=== PATIENT | female | born 1980 | race Caucasian/White ===

== ENCOUNTER 2016-03-03 14:04 | Emergency (ER) | payer BC ==
[2016-03-03] MEDS: ONDANSETRON HCL IV 4 MG/2 ML VIAL IVP ONE (16:04)
[2016-03-03] MEDS: HYDROMORPHONE HCL 1 MG/ML CPJ IVP ONE ×2 (16:04→18:15)
[2016-03-03 16:23] LABS: BASO % 1.2 % (0-6); EOS % 4.2 % (0-6); GRAN % 69.1 % (47-80); HEMATOCRIT 36.3 % (35.0-47.0); HEMOGLOBIN 11.9 gm/dl (11.6-16.0); LYMPH % 19.3 % (16-45); MEAN CELL VOLUME 85.8 fl (81-97); MEAN CORPUSCULAR HEMOGLOBIN 28.1 pg (27-33); MEAN CORPUSCULAR HGB CONC 32.8 g/dl (32-36); MEAN PLATELET VOLUME 10.6 fl (7.4-10.4); MONO % 6.2 % (0-9); PLATELET COUNT 291 K/uL (130-400); RED BLOOD COUNT 4.23 M/uL (3.80-5.40); RED CELL DISTRIBUTION WIDTH 12.9 % (11.5-14.5); WHITE BLOOD COUNT W/O DIFF 6.4 K/uL (4.2-12.2)
[2016-03-03 16:35] LABS: ANION GAP 13.6 (7-16); BLOOD UREA NITROGEN 11 mg/dL (7-17); CARBON DIOXIDE 19.4 mmol/L (22-30); CREATININE 0.6 mg/dL (0.52-1.04); EST GLOMERULAR FILTRATION RATE > 60 ml/min; GLUCOSE,RANDOM 78 mg/dL (70-110)
--- NOTE | 2016-03-03 18:17 | Emergency Department Record ---
History of Present Illness - General Chief complaint: Pain Stated complaint: SURGERY SITE PAIN Time Seen by Provider: 03/03/16 15:45 Source: Patient Mode of Arrival: Ambulatory Limitations: No limitations - History of Present Illness Initial comments: pt c/o lump in her neck. she is felicia concerned as her mother had cancer, lymphoma with the same symptoms. then she vomited today and now has significant pain around the umbilicus MD Complaint: Abdominal Pain, Neck Pain Onset/Timin -: Hour(s) Location: Other History of Same: Yes Radiation: Proximal Severity scale (1-10): 4 Quality: Sharp Consistency: Constant Improves with: Immobilization Worsens with: Other Associated Symptoms: Denies other symptoms - Related Data Home Medications Medication Instructions Recorded Confirmed Last Taken Aspirin [Ecotrin] 325 mg PO DAILY 11/04/15 03/03/16 1 Day Ago Ranitidine HCl [Zantac] 150 mg PO BID 11/04/15 03/03/16 1 Day Ago Sumatriptan Succinate [Imitrex] 100 mg PO DAILY tab 11/22/15 03/03/16 1 Day Ago Quetiapine Fumarate [Seroquel] 50 mg PO BID 01/21/16 03/03/16 1 Day Ago Previous Rx's Medication Instructions Recorded Cephalexin [Keflex] 500 mg PO QID #40 cap 03/03/16 Ibuprofen [Motrin 600Mg] 600 mg PO Q6H #20 tablet 03/03/16 Allergies Allergy/AdvReac Type Severity Reaction Status Date / Time metoclopramide HCl Allergy HYPERSENSIT Verified 03/03/16 14:21 [From Reglan] IVITY promethazine HCl Allergy HYPERSENSIT Verified 03/03/16 14:21 [From Phenergan] IVITY Sulfa (Sulfonamide Allergy HIVES Verified 03/03/16 14:21 Antibiotics) Travel Screening - Travel/Exposure Within Last 30 Days Have you traveled within the last 30 days?: No Review of Systems Reviewed: No additional complaints except as noted below Constitutional: Reports: As per HPI. Denies: Chills, Fever, Malaise, Night sweats, Weakness, Weight change Eyes: Reports: As per HPI. Denies: Eye discharge, Eye pain, Photophobia, Vision change ENT: Reports: As per HPI. Denies: Congestion, Dental pain, Ear pain, Epistaxis , Hearing loss, Throat pain Respiratory: Reports: As per HPI. Denies: Cough, Dyspnea, Hemoptysis, Stridor, Wheezes Cardiovascular: Reports: As per HPI. Denies: Arrhythmia, Chest pain, Dyspnea on exertion, Edema, Murmurs, Orthopnea, Palpitations, Paroxysmal nocturnal dyspnea, Rheumatic Fever, Syncope Endocrine: Reports: As per HPI. Denies: Fatigue, Heat or cold intolerance, Polydipsia, Polyuria Gastrointestinal: Reports: As per HPI. Denies: Abdominal pain, Constipation, Diarrhea, Hematemesis, Hematochezia, Melena, Nausea, Vomiting Genitourinary: Reports: As per HPI. Denies: Abnormal menses, Discharge, Dyspareunia, Dysuria, Frequency, Hematuria, Incontinence, Retention, Urgency Musculoskeletal: Reports: As per HPI. Denies: Arthralgia, Back pain, Gout, Joint swelling, Myalgia, Neck pain Skin: Reports: As per HPI. Denies: Bruising, Change in color, Change in hair/ nails, Lesions, Pruritus, Rash Neurological: Reports: As per HPI. Denies: Abnormal gait, Confusion, Headache, Numbness, Paresthesias, Seizure, Tingling, Tremors, Vertigo, Weakness Psychiatric: Reports: As per HPI. Denies: Anxiety, Auditory hallucinations, Depression, Homicidal thoughts, Suicidal thoughts, Visual hallucinations Hematological/Lymphatic: Reports: As per HPI. Denies: Anemia, Blood Clots, Easy bleeding, Easy bruising, Swollen glands Past Medical History - SOCIAL HISTORY Smoking Status: Former smoker Alcohol Use: Heavy Drug Use: None - RESPIRATORY Hx Respiratory Disorders: Yes Hx Asthma: Yes (mild) Hx Bronchitis: Yes - CARDIOVASCULAR Hx Cardio Disorders: Yes Hx Hypotension: Yes - NEURO Hx Neuro Disorders: Yes Hx Headaches: Yes - GI Hx GI Disorders: Yes Hx Reflux: Yes - Hx Genitourinary Disorders: No - ENDOCRINE Hx Endocrine Disorders: No - MUSCULOSKELETAL Hx Musculoskeletal Disorders: Yes Hx Arthritis: Yes (neck) Hx Fibromyalgia: Yes - PSYCH Hx Psych Problems: Yes Hx Anxiety: Yes Hx Depression: Yes - HEMATOLOGY/ONCOLOGY Hx Hematology/Oncology Disorders: No Family Medical History Any Significant Family History?: Yes Hx Cancer: Mother Physical Exam - General General Appearance: Alert, Oriented x3, Cooperative, Mild distress - Head Head exam: Normal inspection - Eye Eye exam: Normal appearance, PERRL, EOMI Pupils: Normal accommodation - ENT ENT exam: Normal exam, Mucous membranes moist, Normal external ear exam, Normal orophraynx Ear exam: Normal external inspection. negative: External canal tenderness Nasal Exam: Normal inspection. negative: Discharge, Sinus tenderness Mouth exam: Normal external inspection, Tongue normal Teeth exam: Normal inspection. negative: Dental caries Throat exam: Normal inspection. negative: Tonsillar erythema, Tonsillar exudate - Neck Neck exam: Normal inspection, Full ROM, Lymphadenopathy (onl side of neck w erythema and tenderness). negative: Tenderness - Respiratory Respiratory exam: Normal lung sounds bilaterally. negative: Respiratory distress - Cardiovascular Cardiovascular Exam: Regular rate, Normal rhythm, Normal heart sounds - GI/Abdominal GI/Abdominal exam: Soft, Normal bowel sounds, Tenderness (periumbilical) - Rectal Rectal exam: Deferred - exam: Deferred - Extremities Extremities exam: Normal inspection, Full ROM, Normal capillary refill. negative: Tenderness - Back Back exam: Reports: Normal inspection, Full ROM. Denies: Muscle spasm, Rash noted, Tenderness - Neurological Neurological exam: Alert, CN II-XII intact, Normal gait, Oriented X3 - Psychiatric Psychiatric exam: Normal affect, Normal mood - Skin Skin exam: Dry, Intact, Normal color, Warm Course Vital Signs 03/03/16 03/03/16 14:13 16:47 Temperature 98.1 F Pulse Rate 92 H Pulse Rate [ 71 Pulse Ox Probe] Respiratory 16 18 Rate Blood Pressure 124/87 Blood Pressure 117/79 [Right Arm] Pulse Ox 97 98 Medical Decision Making - Management Options MDM Management: Additional Work-up Planned (e.g. ADM/Transfer/OP Study) - Data Complexity MDM Data: Labs Ordered and/or Reviewed, X-Ray Ordered and/or Reviewed - Lab Data Result diagrams: 03/03/16 16:04 03/03/16 16:04 Lab Results 03/03/16 03/03/16 Range/Units 16:04 16:04 WBC 6.4 (4.2-12.2) K/uL RBC 4.23 (3.80-5.40) M/uL Hgb 11.9 (11.6-16.0) gm/dl Hct 36.3 (35.0-47.0) % MCV 85.8 (81-97) fl MCH 28.1 (27-33) pg MCHC 32.8 (32-36) g/dl RDW 12.9 (11.5-14.5) % Plt Count 291 (130-400) K/uL MPV 10.6 H (7.4-10.4) fl Gran % 69.1 (47-80) % Lymphocytes % 19.3 (16-45) % Monocytes % 6.2 (0-9) % Eosinophils % 4.2 (0-6) % Basophils % 1.2 (0-6) % Sodium 138 (136-145) mmol/L Potassium 4.0 (3.5-5.1) mmol/L Chloride 105 (98-107) mmol/L Carbon Dioxide 19.4 L (22-30) mmol/L Anion Gap 13.6 (7-16) BUN 11 (7-17) mg/dL Creatinine 0.6 (0.52-1.04) mg/dL Estimated GFR > 60 ml/min Random Glucose 78 (70-110) mg/dL Calcium 8.7 (8.5-10.1) mg/dL - Radiology Data Radiology results: Report reviewed, Image reviewed Disposition Disposition: Discharge Clinical Impression: Enlarged lymph node in neck Abdominal muscle strain Qualifiers: Encounter type: initial encounter Qualified Code(s): S39.011A - Strain of muscle, fascia and tendon of abdomen, initial encounter Disposition: Home, Self-Care Condition: (1) Good Instructions: Muscle Strain (ED), Lymphadenopathy (ED) Additional Instructions: follow up with family doctor. return sooner if worse. if lymph node does not get better have it rechecked by family doctor for further evaluation Prescriptions: Cephalexin [Keflex] 500 mg PO QID #40 cap Ibuprofen [Motrin 600Mg] 600 mg PO Q6H #20 tablet Forms: Patient Portal Access
--- NOTE | 2016-03-06 10:41 | CT SCAN REPORT ---
EXAM: CT SCAN OF THE ABDOMEN AND PELVIS HISTORY: ACUTE ABDOMINAL PAIN. TECHNIQUE: Serial axial CT scan of the abdomen and pelvis was performed at 3.75 mm intervals from the dome of the diaphragm down to the pubic symphysis following the intravenous and oral administration of contrast. No comparison CT's are available. FINDINGS: The lung windows of the lung bases demonstrate no CT evidence of a focal infiltrate or pleural effusion. The visualized heart size and contour is within normal limits. The liver demonstrates diffuse mild fatty infiltration. No focal hepatic lesions are identified. The size and contour of the liver is within normal limits. The visualized spleen, pancreas, bilateral adrenal glands, and gallbladder are unremarkable. The bilateral kidneys demonstrate no CT evidence of hydronephrosis or hydroureter. No obvious renal or ureteral calculi are noted. The contour, caliber, and flow within the abdominal aorta is within normal limits. There is no CT evidence of retroperitoneal, pelvic or inguinal lymphadenopathy. The visualized bowel gas pattern is nonspecific and nonobstructive. The appendix is clearly visualized and there is no CT evidence of appendicitis. There is no CT evidence of free intraperitoneal fluid or free intraperitoneal air. The urinary bladder is unremarkable The uterus is retroverted. Occasional follicles are identified within the bilateral ovaries. Bone windows of the visualized abdomen and pelvis demonstrate no CT evidence of a fracture or dislocation of the visualized osseous structures. IMPRESSION: 1. NO CT EVIDENCE OF AN ACUTE INTRAABDOMINAL PROCESS. 2. DIFFUSE HEPATIC STEATOSIS. JOB NUMBER: [id number] [facility]
--- NOTE | 2016-03-06 10:47 | CT SCAN REPORT ---
EXAM: CT SCAN OF THE NECK HISTORY: PATIENT HAS SWOLLEN LYMPH GLANDS IN THE LEFT SIDE OF THE NECK. TECHNIQUE: Serial axial CT scan of the neck was performed at 2.5 mm intervals from the base of the skull to the thoracic inlet following the intravenous administration of 150 ml of Omnipaque 350. Sagittal and coronal reconstructions are provided. No comparison studies are available. FINDINGS: The vertebral body height, contour, and AP alignment of the cervical spine is within normal limits. There is no CT evidence of a fracture or dislocation of the cervical spine. Anterior plate and screw fixation of the C5 and C6 vertebral bodies are identified with interbody graft. No obvious hardware failure is noted. The prevertebral soft tissue and parapharyngeal fat are unremarkable. The visualized submandibular, parotid, and thyroid gland are unremarkable. There is no CT evidence of cervical lymphadenopathy. The neck vessels are unremarkable. The lung windows of the lung apices are clear. The airways are patent. IMPRESSION: NO CT EVIDENCE OF AN ACUTE PROCESS INVOLVING THE NECK. JOB NUMBER: [id number] [facility]
== END 2016-03-03 19:28 | disposition home or self-care (01) ==
LOC: ER 14:04
DX: S39.011A Strain of muscle, fascia and tendon of abdomen, initial encounter (principal); R59.0 Localized enlarged lymph nodes; M54.2 Cervicalgia; R11.11 Vomiting without nausea; X58.XXXA Exposure to other specified factors, initial encounter
CPT/HCPCS: 99284 ×2; 96376; 96374; 96375; 85025; 80048; 70491; 74177; Q9967; J2405; J1170

== ENCOUNTER 2016-12-27 19:20 | Emergency (ER) | payer MEDICAID ==
[2016-12-27] MEDS ORDERED: ONDANSETRON HCL IV 4 MG/2 ML VIAL IVP ONE (19:47)
--- NOTE | 2016-12-27 19:51 | Emergency Department Record ---
History of Present Illness - General Chief complaint: Fatigue and Weakness Stated complaint: BLACK STOOL,VOMITTING Time Seen by Provider: 12/27/16 19:45 Source: Patient Mode of Arrival: Ambulatory Limitations: No limitations - History of Present Illness Initial comments: 36 yo female presents to ED for evaluation of vomiting blood today, black stools , and weakness/fatigue. Patient reports a history of "stomach ulcers", denies previous endoscopy. Patient denies anticoagulation use or liver disease history. Patient denies previous abdominal surgery. MD Complaint: Generalized weakness Onset/Timin -: Days(s) Location: Generalized Severity: Moderate Consistency: Constant Improves with: None Worsens with: None Associated Symptoms: Nausea/vomiting - Hudson Coma Scale Eye Response: (4) Open spontaneously Motor Response: (6) Obeys commands Verbal Response: (5) Oriented Hudson Total: 15 - Related Data Previous Rx's Medication Instructions Recorded Ondansetron [Zofran Odt] 4 mg PO Q6H PRN #20 tab.rapdis 12/27/16 Allergies Allergy/AdvReac Type Severity Reaction Status Date / Time metoclopramide HCl Allergy HYPERSENSIT Verified 12/27/16 20:09 [From Reglan] IVITY promethazine HCl Allergy HYPERSENSIT Verified 12/27/16 20:09 [From Phenergan] IVITY Sulfa (Sulfonamide Allergy HIVES Verified 12/27/16 20:09 Antibiotics) Review of Systems Constitutional: Denies: Chills, Fever, Malaise, Night sweats Eyes: Denies: Eye discharge, Eye pain ENT: Denies: Congestion, Ear pain, Epistaxis Respiratory: Denies: Cough, Dyspnea Cardiovascular: Denies: Dyspnea on exertion, Edema Endocrine: Denies: Fatigue, Heat or cold intolerance Gastrointestinal: Reports: Abdominal pain, Melena, Nausea, Vomiting Genitourinary: Denies: Incontinence, Retention Musculoskeletal: Denies: Arthralgia, Back pain, Gout, Joint swelling Skin: Denies: Bruising, Change in color Neurological: Denies: Abnormal gait, Confusion, Headache Psychiatric: Denies: Anxiety Hematological/Lymphatic: Denies: Anemia, Blood Clots Past Medical History - SOCIAL HISTORY Smoking Status: Former smoker Drug Use: None - RESPIRATORY Hx Respiratory Disorders: Yes Hx Asthma: Yes (mild) Hx Bronchitis: Yes - CARDIOVASCULAR Hx Cardio Disorders: Yes Hx Hypotension: Yes - NEURO Hx Neuro Disorders: Yes Hx Headaches: Yes - GI Hx GI Disorders: Yes Hx Reflux: Yes - Hx Genitourinary Disorders: No - ENDOCRINE Hx Endocrine Disorders: No - MUSCULOSKELETAL Hx Musculoskeletal Disorders: Yes Hx Arthritis: Yes (neck) Hx Fibromyalgia: Yes - PSYCH Hx Psych Problems: Yes Hx Anxiety: Yes Hx Depression: Yes - HEMATOLOGY/ONCOLOGY Hx Hematology/Oncology Disorders: No Family Medical History Hx Cancer: Mother Physical Exam - General General Appearance: Alert, Oriented x3, Cooperative, Moderate distress Limitations: No limitations - Head Head exam: Atraumatic, Normocephalic, Normal inspection Head exam detail: negative: Abrasion, Contusion, Clifford's sign, General tenderness, Hematoma, Laceration - Eye Eye exam: Normal appearance. negative: Conjunctival injection, Periorbital swelling, Periorbital tenderness, Scleral icterus - ENT Ear exam: negative: Auricular hematoma, Auricular trauma Nasal Exam: negative: Active bleeding, Discharge, Dried blood, Foreign body Mouth exam: negative: Drooling, Laceration, Muffled voice, Tongue elevation - Neck Neck exam: Normal inspection. negative: Meningismus, Tenderness - Respiratory Respiratory exam: Normal lung sounds bilaterally. negative: Rhonchi, Stridor, Wheezes - Cardiovascular Cardiovascular Exam: Normal rhythm, Normal heart sounds, Tachycardia - GI/Abdominal GI/Abdominal exam: Soft, Tenderness (Generalized TTP, no rebound or guarding present). negative: Rebound, Rigid - Rectal Rectal exam: Deferred - exam: Deferred - Extremities Extremities exam: Normal inspection. negative: Calf tenderness, Pedal edema, Tenderness - Back Back exam: Denies: CVA tenderness (R), CVA tenderness (L) - Neurological Neurological exam: Alert, Normal gait, Oriented X3 - Psychiatric Psychiatric exam: Normal affect, Normal mood - Skin Skin exam: Normal color. negative: Abrasion Type of lesion: negative: abrasion Course - Reevaluation(s) Reevaluation #1: 12/27/16 20:31 EKG: NSR 71 Normal axis, normal intervals No acute ST-T wave changes Reevaluation #2: 12/27/16 20:44 Labs reviewed and are grossly unremarkable for an acute process. CT results are pending. Reevaluation #3: 12/27/16 21:09 Labs reviewed and are grossly unremarkable for an acute process. CT Abdomen and Pelvis: No acute process Patient was updated on all results, reports that she is feeling much better. Patient has not had any episodes of vomiting or melanotic stool while in the ED. Discussed transfer for possible endoscopy tomorrow as an inpatient, however patient reports that she wants to go home at this time. Patient is currently taking Carafate and Omeprazole for her symptoms, will discharge home on Zofran for nausea/vomiting symptoms and instructions for close follow-up. Medical Decision Making - Lab Data Result diagrams: 12/27/16 20:03 12/27/16 20:03 Disposition Disposition: Discharge Clinical Impression: Hematochezia Disposition: Home, Self-Care Condition: (2) Stable Instructions: Acute Nausea and Vomiting (ED) Additional Instructions: Return to ED if your symptoms worsen or if you have any concerns. Zofran in addition to Omeprazole and Carafate as directed. Follow-up with your family doctor in 1-3 days as directed. Prescriptions: Ondansetron [Zofran Odt] 4 mg PO Q6H PRN #20 tab.rapdis PRN Reason: Nausea/Vomiting Referrals: LAYNE BARCENAS [DOCTOR OF OSTEOPATH] - [facility] [Provider Group] Forms: Patient Portal Access Time of Disposition: 21:14 Quality - Quality Measures Quality Measures: N/A - Blood Pressure Screening Does Patient Have Any of the Following: No Blood Pressure Classification: Hypertensive Reading Systolic Measurement: 122 Diastolic Measurement: 94 Screening for High Blood Pressure: < First Hypertensive BP, F/U Documented > [ G8950] First Hypertensive Follow-up Interventions: Referral to alternative/primary care provider.
[2016-12-27] MEDS ORDERED: 0.9 % SODIUM CHLORIDE 1000ML 1,000 ML IV SCH (20:00)
[2016-12-27 20:11] LABS: BASO % 1.1 % (0-6); EOS % 5.6 % (0-6); GRAN % 59.6 % (47-80); HEMATOCRIT 39.3 % (35.0-47.0); HEMOGLOBIN 13.7 gm/dl (11.6-16.0); MEAN CELL VOLUME 87.3 fl (81-97); MEAN CORPUSCULAR HEMOGLOBIN 30.4 pg (27-33); MEAN CORPUSCULAR HGB CONC 34.9 g/dl (32-36); MONO % 7.7 % (0-9); PLATELET COUNT 359 K/uL (130-400); RED CELL DISTRIBUTION WIDTH 14.4 % (11.5-14.5); WHITE BLOOD COUNT W/O DIFF 7.4 K/uL (4.2-12.2)
[2016-12-27 20:22] LABS: BLOOD UREA NITROGEN 13 mg/dL (6-20); CREATININE 0.7 mg/dL (0.5-0.9); EST GLOMERULAR FILTRATION RATE > 60 mL/min; GLUCOSE,RANDOM 92 mg/dL (74-109); INR 1.06; PROTHROMBIN TIME (PATIENT) 11.5 SECONDS (9.5-12.1); TOTAL PROTEIN 7.4 g/dL (6.6-8.7)
[2016-12-27 20:25] LABS: ALB/GLOB RATIO 1.3 (1.1-1.8); ALBUMIN 4.2 g/dL (4.0-5.0); ALKALINE PHOSPHATASE 70 U/L (35-104); ALT/SGPT 14 U/L (<33); AST/SGOT 27 U/L (10.0-35.0)
[2016-12-27] MEDS ORDERED: MAGNESIUM HYDROXIDE/AL HYDROX 30 ML, LIDOCAINE VISC 2% 200 MG PO ONE ×2 (21:02)
--- NOTE | 2016-12-29 08:07 | CT SCAN REPORT ---
DATE: 12/27/2016 at 2036 hours. EXAM: CT SCAN OF THE ABDOMEN AND PELVIS WITH CONTRAST. HISTORY: Upper abdominal pain and heartburn. Ulcers. Evaluate for perforated ulcer. TECHNIQUE: Standard CT imaging of the abdomen and pelvis was performed with intravenous contrast. A total of 100 mL of Omnipaque 300 was administered. COMPARISON: 03/13/2016. FINDINGS: The lung bases are clear. The liver parenchyma appears normal. The gallbladder, biliary tree, pancreas, spleen, adrenal glands, kidneys, and ureters are normal. The stomach and epigastrium are unremarkable. There are no focal inflammatory changes. There is no evidence for perforated ulcer. The aorta is normal in caliber. There is no retroperitoneal lymphadenopathy. The large and small bowel loops, including the appendix, are normal. There is no pneumoperitoneum or ascites. A 2.3 x 1.9 cm cyst is present within the left ovary. A 1.4 cm follicle is present within the right ovary. The uterus is unremarkable. The urinary bladder is normal. There are no acute osseus abnormalities. IMPRESSION: 1. NO ACUTE INTRA-ABDOMINAL PATHOLOGY. 2. A 2.3 X 1.9 CM LEFT OVARIAN CYST. JOB NUMBER: [id number] [facility]
== END 2016-12-27 21:44 | disposition home or self-care (01) ==
LOC: ER 19:20
DX: K92.1 Melena (principal); R53.1 Weakness; R11.2 Nausea with vomiting, unspecified
CPT/HCPCS: 99284 ×2; 96374; 85025; 85610; 80053; 74177; 93005; 93010; Q9967; J2405; J7030

== ENCOUNTER 2017-01-08 05:33 | Emergency (ER) | payer MEDICAID ==
[2017-01-08] MEDS ORDERED: KETOROLAC 30 MG/ML VIAL IVP ONE (05:47)
[2017-01-08] MEDS ORDERED: MAGNESIUM SULFATE 16 MEQ in 0.9 % SODIUM CHLORIDE 100ML 100 ML IV ONE (05:47)
[2017-01-08] MEDS ORDERED: ONDANSETRON HCL IV 4 MG/2 ML VIAL IVP ONE ×2 (05:48→06:46)
--- NOTE | 2017-01-08 05:53 | Emergency Department Record ---
History of Present Illness - General Chief Complaint: Headache Migraine Stated Complaint: HEADACHE/VOMITING Time Seen by Provider: 01/08/17 05:47 Source: Patient Mode of Arrival: Ambulatory Limitations: No limitations - History of Present Illness Initial Comments: 36 yo female presents to ED for evaluation of a "nigraine" headache that began yesterday, associated with nausea and vomiting. Patient reports taking Imitrex previously which has not significantly improved her symptoms. Patient denies fevers, chills, or neck stiffness symptoms, and the patient denies change in vision. MD Complaint: Headache Onset/Timin -: Days(s) Onset Description: Gradual Location: Diffuse, Neck, Retro-orbital Severity scale (1-10): 10 Quality: Full Consistency: Constant Improves With: Nothing Worsens With: Light, Movement of head/neck Associated Symptoms: Vomiting Treatments Prior to Arrival: Antiemetic, Migraine medication - Related Data Previous Rx's Medication Instructions Recorded Ondansetron [Zofran Odt] 4 mg PO Q6H PRN #20 tab.rapdis 12/27/16 Allergies Allergy/AdvReac Type Severity Reaction Status Date / Time metoclopramide HCl Allergy HYPERSENSIT Verified 12/27/16 20:09 [From Reglan] IVITY promethazine HCl Allergy HYPERSENSIT Verified 12/27/16 20:09 [From Phenergan] IVITY Sulfa (Sulfonamide Allergy HIVES Verified 12/27/16 20:09 Antibiotics) Travel Screening - Travel/Exposure Within Last 30 Days Have you traveled within the last 30 days?: No - Travel Symptoms Symptom Screening: None Review of Systems Constitutional: Denies: Chills, Fever, Malaise, Night sweats Eyes: Denies: Eye discharge, Eye pain ENT: Denies: Congestion, Ear pain, Epistaxis Respiratory: Denies: Cough, Dyspnea Cardiovascular: Denies: Chest pain, Dyspnea on exertion Endocrine: Denies: Fatigue, Heat or cold intolerance Gastrointestinal: Reports: Nausea, Vomiting. Denies: Abdominal pain Genitourinary: Denies: Incontinence, Retention Musculoskeletal: Denies: Arthralgia, Back pain, Gout, Joint swelling Skin: Denies: Bruising, Change in color Neurological: Reports: Headache. Denies: Seizure Psychiatric: Denies: Anxiety Hematological/Lymphatic: Denies: Anemia, Blood Clots Past Medical History - SOCIAL HISTORY Smoking Status: Former smoker - RESPIRATORY Hx Respiratory Disorders: Yes Hx Asthma: Yes (mild) Hx Bronchitis: Yes - CARDIOVASCULAR Hx Cardio Disorders: Yes Hx Hypotension: Yes - NEURO Hx Neuro Disorders: Yes Hx Headaches: Yes - GI Hx GI Disorders: Yes Hx Reflux: Yes - Hx Genitourinary Disorders: No - ENDOCRINE Hx Endocrine Disorders: No Hx Diabetes: No Hx Thyroid Disease: No - MUSCULOSKELETAL Hx Musculoskeletal Disorders: Yes Hx Arthritis: Yes (neck) Hx Fibromyalgia: Yes - PSYCH Hx Psych Problems: Yes Hx Anxiety: Yes Hx Depression: Yes - HEMATOLOGY/ONCOLOGY Hx Hematology/Oncology Disorders: No Family Medical History Any Significant Family History?: Yes Hx Cancer: Mother Physical Exam - General General Appearance: Alert, Oriented x3, Cooperative, Moderate distress Limitations: No limitations - Head Head exam: Atraumatic, Normocephalic, Normal inspection Head exam detail: negative: Abrasion, Contusion, Clifford's sign, General tenderness, Hematoma, Laceration - Eye Eye exam: Normal appearance, PERRL. negative: Conjunctival injection, Periorbital swelling, Periorbital tenderness, Scleral icterus - ENT Ear exam: negative: Auricular hematoma, Auricular trauma Nasal Exam: negative: Active bleeding, Discharge, Dried blood, Foreign body Mouth exam: negative: Drooling, Laceration, Muffled voice, Tongue elevation - Neck Neck exam: Normal inspection. negative: Meningismus, Tenderness - Respiratory Respiratory exam: Normal lung sounds bilaterally. negative: Rales, Respiratory distress, Rhonchi, Stridor - Cardiovascular Cardiovascular Exam: Regular rate, Normal rhythm, Normal heart sounds - GI/Abdominal GI/Abdominal exam: Soft. negative: Rebound, Rigid, Tenderness - Rectal Rectal exam: Deferred - exam: Deferred - Extremities Extremities exam: Normal inspection. negative: Calf tenderness, Pedal edema, Tenderness - Back Back exam: Denies: CVA tenderness (R), CVA tenderness (L) - Neurological Neurological exam: Alert, Normal gait, Oriented X3 - Psychiatric Psychiatric exam: Normal affect, Normal mood - Skin Skin exam: Normal color. negative: Abrasion Type of lesion: negative: abrasion Course Vital Signs 01/08/17 05:37 Pulse Rate 80 Respiratory 24 Rate Blood Pressure 121/67 Pulse Ox 100 - Reevaluation(s) Reevaluation #1: 01/08/17 06:46 Patient was reassessed and reports that she is feeling much better, reports that her headache symptoms are down to 3/10. Patient appears stable for discharge at this time. Disposition Disposition: Discharge Clinical Impression: Headache Qualifiers: Headache type: unspecified Headache chronicity pattern: acute headache Intractability: not intractable Qualified Code(s): R51 - Headache Disposition: Home, Self-Care Condition: (2) Stable Instructions: Acute Headache (ED) Additional Instructions: Return to ED if your symptoms worsen or if you have any concerns. Follow-up with your family doctor in 3-5 days as directed. Forms: Patient Portal Access Time of Disposition: 06:44 Quality - Quality Measures Quality Measures: N/A - Blood Pressure Screening Does Patient Have Any of the Following: No Blood Pressure Classification: Pre-Hypertensive BP Reading Systolic Measurement: 121 Diastolic Measurement: 67 Screening for High Blood Pressure: < Pre-Hypertensive BP, F/U Documented > [ G8950] Pre-Hypertensive Follow-up Interventions: Referral to alternative/primary care provider.
[2017-01-08] MEDS ORDERED: 0.9 % SODIUM CHLORIDE 1000ML 1,000 ML IV SCH (06:00)
== END 2017-01-08 06:59 | disposition home or self-care (01) ==
LOC: ER 05:33
DX: R51 Headache (principal); R11.2 Nausea with vomiting, unspecified
CPT/HCPCS: 99284 ×2; 96376; 96365; 96375; J1885; J2405; J7030

== ENCOUNTER 2017-08-03 19:35 | Emergency (ER) | payer MEDICAID ==
[2017-08-03] MEDS ORDERED: ONDANSETRON HCL IV 4 MG/2 ML VIAL IVP ONE (20:19)
--- NOTE | 2017-08-03 20:23 | Emergency Department Record ---
History of Present Illness - General Chief Complaint: General Stated Complaint: FATIGUE,TIRED ALL THE TIME Time Seen by Provider: 08/03/17 20:08 Source: Patient Mode of Arrival: Wheelchair Limitations: No limitations - History of Present Illness Initial comments: 37 yo female presents to ED for evaluation of "the moist tired I've ever felt in my life". Patient denies fevers, chills, or recent illness. Patient is concerned about "possible mosquito or tick bite that is making me tired". Patient does report "drinking some rum this afternoon because I was anxious about mosquitos". Patient denies stiff neck or headache symptoms. MD Complaint: fatigue Onset/Timin -: Hour(s) Consistency: Constant Improves with: None Worsens with: None Associated Symptoms: Denies other symptoms - [place] Coma Scale Eye Response: (4) Open spontaneously Motor Response: (6) Obeys commands Verbal Response: (5) Oriented Desire Total: 15 - Related Data Previous Rx's Medication Instructions Recorded Ondansetron [Zofran Odt] 4 mg PO Q6H PRN #20 tab.rapdis 12/27/16 Allergies Allergy/AdvReac Type Severity Reaction Status Date / Time metoclopramide HCl Allergy HYPERSENSIT Verified 12/27/16 20:09 [From Reglan] IVITY promethazine HCl Allergy HYPERSENSIT Verified 12/27/16 20:09 [From Phenergan] IVITY Sulfa (Sulfonamide Allergy HIVES Verified 12/27/16 20:09 Antibiotics) Travel Screening - Travel/Exposure Within Last 30 Days Have you traveled within the last 30 days?: No - Travel Symptoms Symptom Screening: None Review of Systems Constitutional: Denies: Chills, Fever, Malaise, Night sweats Eyes: Denies: Eye discharge, Eye pain ENT: Denies: Congestion, Ear pain, Epistaxis Respiratory: Denies: Cough, Dyspnea Cardiovascular: Denies: Chest pain, Dyspnea on exertion Endocrine: Reports: Fatigue. Denies: Heat or cold intolerance Gastrointestinal: Reports: Nausea. Denies: Abdominal pain, Vomiting Genitourinary: Denies: Incontinence, Retention Musculoskeletal: Denies: Arthralgia, Back pain, Gout, Joint swelling Skin: Denies: Bruising, Change in color Neurological: Denies: Abnormal gait, Confusion, Seizure Psychiatric: Reports: Anxiety Hematological/Lymphatic: Denies: Anemia, Blood Clots Past Medical History - SOCIAL HISTORY Smoking Status: Former smoker Alcohol Use: Occasional Drug Use: None - RESPIRATORY Hx Respiratory Disorders: Yes Hx Asthma: Yes (mild) Hx Bronchitis: Yes - CARDIOVASCULAR Hx Cardio Disorders: Yes Hx Hypotension: Yes - NEURO Hx Neuro Disorders: Yes Hx Headaches: Yes - GI Hx GI Disorders: Yes Hx Reflux: Yes - Hx Genitourinary Disorders: No - ENDOCRINE Hx Endocrine Disorders: No Hx Diabetes: No Hx Thyroid Disease: No - MUSCULOSKELETAL Hx Musculoskeletal Disorders: Yes Hx Arthritis: Yes (neck) Hx Fibromyalgia: Yes - PSYCH Hx Psych Problems: Yes Hx Anxiety: Yes Hx Depression: Yes - HEMATOLOGY/ONCOLOGY Hx Hematology/Oncology Disorders: No Family Medical History Any Significant Family History?: Yes Hx Cancer: Mother Physical Exam - General General Appearance: Alert, Oriented x3, Cooperative, Other (Patient has mildldy slurred speech on examination, swaying while sitting upright, pupils are dilated but react to light normally. Paitent smells or alcohol as well.) Limitations: Other (intoxicated) - Head Head exam: Atraumatic, Normocephalic, Normal inspection Head exam detail: negative: Abrasion, Contusion, Clifford's sign, General tenderness, Hematoma, Laceration - Eye Eye exam: Normal appearance, PERRL. negative: Conjunctival injection, Periorbital swelling, Periorbital tenderness, Scleral icterus - ENT Ear exam: negative: Auricular hematoma, Auricular trauma Nasal Exam: negative: Active bleeding, Discharge, Dried blood, Foreign body Mouth exam: negative: Drooling, Laceration, Muffled voice, Tongue elevation - Neck Neck exam: Normal inspection. negative: Meningismus, Tenderness - Respiratory Respiratory exam: Normal lung sounds bilaterally. negative: Rales, Respiratory distress, Rhonchi, Stridor - Cardiovascular Cardiovascular Exam: Regular rate, Normal rhythm, Normal heart sounds - GI/Abdominal GI/Abdominal exam: Soft. negative: Rebound, Rigid, Tenderness - Rectal Rectal exam: Deferred - exam: Deferred - Extremities Extremities exam: Normal inspection. negative: Calf tenderness, Pedal edema, Tenderness - Back Back exam: Reports: Normal inspection. Denies: CVA tenderness (R), CVA tenderness (L) - Neurological Neurological exam: Altered - Skin Skin exam: Normal color. negative: Abrasion Type of lesion: negative: abrasion Course Vital Signs 08/03/17 19:49 Temperature 99.2 F Pulse Rate [ 102 H Pulse Ox Probe] Respiratory 18 Rate Blood Pressure 130/99 [Left Arm] Pulse Ox 96 - Reevaluation(s) Reevaluation #1: 08/03/17 21:04 Labs reviewed, alcohol is 0.284, labs are otherwise grossly unremarkable for an acute process. Patient was updated on all results thus far, symptoms appear consistent with alcohol intoxication. Patient appears stable for discharge with sober ride at this time. Medical Decision Making - Lab Data Result diagrams: 08/03/17 20:30 08/03/17 20:30 Disposition Disposition: Discharge Clinical Impression: Alcohol intoxication Qualifiers: Complication of substance-induced condition: uncomplicated Qualified Code(s): F10.920 - Alcohol use, unspecified with intoxication, uncomplicated Disposition: Home, Self-Care Condition: (2) Stable Instructions: Alcohol Intoxication (ED) Additional Instructions: Return to ED if your symptoms worsen or if you have any concerns. Alcohol in moderation. Follow-up with your family doctor in 3-5 days as directed. Forms: Patient Portal Access Time of Disposition: 21:09 Quality - Quality Measures Quality Measures: N/A - Blood Pressure Screening Does Patient Have Any of the Following: No Blood Pressure Classification: Hypertensive Reading Systolic Measurement: 130 Diastolic Measurement: 99 Screening for High Blood Pressure: < First Hypertensive BP, F/U Documented > [ G8950] First Hypertensive Follow-up Interventions: Referral to alternative/primary care provider.
[2017-08-03] MEDS ORDERED: 0.9 % SODIUM CHLORIDE 1000ML 1,000 ML IV SCH (20:30)
[2017-08-03 20:38] LABS: BASO % 1.2 % (0-6); EOS % 5.3 % (0-6); GRAN % 58.9 % (47-80); HEMATOCRIT 38.3 % (35.0-47.0); LYMPH % 29.1 % (16-45); MEAN CELL VOLUME 80.6 fl (81-97); MEAN CORPUSCULAR HEMOGLOBIN 25.3 pg (27-33); MEAN CORPUSCULAR HGB CONC 31.3 g/dl (32-36); MEAN PLATELET VOLUME 9.7 fl (7.4-10.4); MONO % 5.5 % (0-9); PLATELET COUNT 440 K/uL (130-400); RED BLOOD COUNT 4.75 M/uL (3.80-5.40); RED CELL DISTRIBUTION WIDTH 16.6 % (11.5-14.5); URINE APPEARANCE CLEAR; URINE BILIRUBIN NEGATIVE (NEGATIVE); URINE BLOOD NEGATIVE (NEGATIVE); URINE COLOR YELLOW; URINE GLUCOSE (UA) NEGATIVE (NEGATIVE); URINE KETONE NEGATIVE (NEGATIVE); URINE LEUKOCYTE ESTERASE NEGATIVE (NEGATIVE); URINE NITRITE NEGATIVE (NEGATIVE); URINE PROTEIN NEGATIVE (NEGATIVE); URINE UROBILINOGEN 0.2 E.U./dL (0.20 - 1.00); WHITE BLOOD COUNT W/O DIFF 6.6 K/uL (4.2-12.2)
[2017-08-03 20:42] LABS: AMPHETAMINE SCREEN URINE NOT DETECTED; BARBITURATE SCREEN URINE NOT DETECTED; BENZODIAZEPINE SCREEN URINE NOT DETECTED; COCAINE SCREEN URINE NOT DETECTED; METHADONE SCREEN URINE NOT DETECTED; METHAMPHETAMINE SCREEN NOT DETECTED; OPIATE SCREEN URINE NOT DETECTED; OXYCODONE SCREEN URINE NOT DETECTED; PHENCYCLIDINE SCREEN URINE NOT DETECTED; PROPOXYPHENE SCREEN URINE NOT DETECTED; THC SCREEN URINE NOT DETECTED; TRICYCLIC ANTIDEPRESSANT SCRN NOT DETECTED
[2017-08-03 20:51] LABS: BILIRUBIN,TOTAL < 0.20 mg/dL (0.2-1.0); BLOOD UREA NITROGEN 14 mg/dL (6-20); CREATININE 0.5 mg/dL (0.5-0.9); EST GLOMERULAR FILTRATION RATE > 60 mL/min; TOTAL PROTEIN 7.1 g/dL (6.6-8.7)
[2017-08-03 20:52] LABS: ALCOHOL 0.284 g/dL (0-0.010)
[2017-08-03 20:53] LABS: GLUCOSE,RANDOM 107 mg/dL (74-109)
[2017-08-03 20:56] LABS: ALB/GLOB RATIO 1.3 (1.1-1.8); ALKALINE PHOSPHATASE 74 U/L (35-104); ALT/SGPT 20 U/L (<33); AST/SGOT 34 U/L (10.0-35.0)
== END 2017-08-03 21:29 | disposition home or self-care (01) ==
LOC: ER 19:35
DX: F10.920 Alcohol use, unspecified with intoxication, uncomplicated (principal); R11.0 Nausea; R53.83 Other fatigue; R51 Headache; I10 Essential (primary) hypertension; Z87.891 Personal history of nicotine dependence; Y90.8 Blood alcohol level of 240 mg/100 ml or more
CPT/HCPCS: 80053; 80305; 80320; 81003; 85025; 96361; 96374; 99284; J2405; J7030

== ENCOUNTER 2017-08-18 00:57 | Emergency (ER) | payer MEDICAID ==
--- NOTE | 2017-08-18 01:35 | Emergency Department Record ---
History of Present Illness - General Chief complaint: Pain Stated complaint: RIB PAIN Time Seen by Provider: 08/18/17 00:59 Source: Patient, EMS Mode of Arrival: EMS Limitations: No limitations - History of Present Illness Initial comments: 37 yo female presents to ED for evaluation of right posterior-lateral rib pain that began after a friend "stepped on her back" 2 weeks ago. Patient reports that she has been dealing with her pain symptoms at home, however the pain was "too much tonight so I drank 6 drinks to dull the pain". Patient denies health problems at her baseline. MD Complaint: Other (Right posterior rib pain) Onset/Timin -: Week(s) Location: Right, Other History of Same: No Severity scale (1-10): 10 Quality: Aching Consistency: Constant, Getting worse Improves with: Nothing Worsens with: Palpation Associated Symptoms: Denies other symptoms - Related Data Home Medications Medication Instructions Recorded Confirmed Last Taken Amitriptyline HCl [Elavil] 10 mg PO DAILY 08/18/17 08/18/17 Unknown Previous Rx's Medication Instructions Recorded Ondansetron [Zofran Odt] 4 mg PO Q6H PRN #20 tab.rapdis 12/27/16 Allergies Allergy/AdvReac Type Severity Reaction Status Date / Time metoclopramide HCl Allergy HYPERSENSIT Verified 12/27/16 20:09 [From Reglan] IVITY promethazine HCl Allergy HYPERSENSIT Verified 12/27/16 20:09 [From Phenergan] IVITY Sulfa (Sulfonamide Allergy HIVES Verified 12/27/16 20:09 Antibiotics) Travel Screening - Travel/Exposure Within Last 30 Days Have you traveled within the last 30 days?: No Review of Systems Constitutional: Denies: Chills, Fever, Malaise, Night sweats Eyes: Denies: Eye discharge, Eye pain ENT: Denies: Congestion, Ear pain, Epistaxis Respiratory: Reports: Other (Chest wall pain right lower ribs). Denies: Cough, Dyspnea Cardiovascular: Denies: Chest pain, Dyspnea on exertion Endocrine: Denies: Fatigue, Heat or cold intolerance Gastrointestinal: Denies: Abdominal pain, Constipation Genitourinary: Denies: Incontinence, Retention Musculoskeletal: Denies: Arthralgia, Back pain, Gout, Joint swelling Skin: Denies: Bruising, Change in color Neurological: Denies: Abnormal gait, Confusion, Headache, Seizure Psychiatric: Denies: Anxiety Hematological/Lymphatic: Denies: Anemia, Blood Clots Past Medical History - SOCIAL HISTORY Smoking Status: Former smoker Alcohol Use: None Drug Use: None - RESPIRATORY Hx Respiratory Disorders: Yes Hx Asthma: Yes (mild) Hx Bronchitis: Yes - CARDIOVASCULAR Hx Cardio Disorders: Yes Hx Hypotension: Yes - NEURO Hx Neuro Disorders: Yes Hx Headaches: Yes - GI Hx GI Disorders: Yes Hx Reflux: Yes - Hx Genitourinary Disorders: No - ENDOCRINE Hx Endocrine Disorders: No Hx Diabetes: No Hx Thyroid Disease: No - MUSCULOSKELETAL Hx Musculoskeletal Disorders: Yes Hx Arthritis: Yes (neck) Hx Fibromyalgia: Yes - PSYCH Hx Psych Problems: Yes Hx Anxiety: Yes Hx Depression: Yes - HEMATOLOGY/ONCOLOGY Hx Hematology/Oncology Disorders: No Family Medical History Any Significant Family History?: Yes Hx Cancer: Mother Physical Exam - General General Appearance: Alert, Oriented x3, Cooperative, Mild distress, Other ( Smells of alcohol, resting comfortably on her right side) Limitations: No limitations - Head Head exam: Atraumatic, Normocephalic, Normal inspection Head exam detail: negative: Abrasion, Contusion, Clifford's sign, General tenderness, Hematoma, Laceration - Eye Eye exam: Normal appearance. negative: Conjunctival injection, Periorbital swelling, Periorbital tenderness, Scleral icterus - ENT Ear exam: negative: Auricular hematoma, Auricular trauma Nasal Exam: negative: Active bleeding, Discharge, Dried blood, Foreign body Mouth exam: negative: Drooling, Laceration, Muffled voice, Tongue elevation - Neck Neck exam: Normal inspection. negative: Meningismus, Tenderness - Respiratory Respiratory exam: Normal lung sounds bilaterally, Chest wall tenderness (TTP to the 11th/12th right posterior-lateral ribs with pin-point tenderness, no rash is present, no ecchymosis or signs of injury.). negative: Rales, Respiratory distress, Rhonchi - Cardiovascular Cardiovascular Exam: Regular rate, Normal rhythm, Normal heart sounds - GI/Abdominal GI/Abdominal exam: Soft. negative: Rebound, Rigid, Tenderness - Rectal Rectal exam: Deferred - exam: Deferred - Extremities Extremities exam: Normal inspection. negative: Calf tenderness, Pedal edema, Tenderness - Back Back exam: Denies: CVA tenderness (R), CVA tenderness (L) - Neurological Neurological exam: Alert, Normal gait, Oriented X3 - Psychiatric Psychiatric exam: Normal affect, Normal mood - Skin Skin exam: Normal color. negative: Abrasion Type of lesion: negative: abrasion Course Vital Signs 08/18/17 01:01 Temperature 99.1 F Pulse Rate [ 78 Pulse Ox Probe] Respiratory 18 Rate Blood Pressure 114/66 [Left Arm] Pulse Ox 97 - Reevaluation(s) Reevaluation #1: 08/18/17 02:59 Labs reviewed, Alcohol 0.269, Hgb 9.8 (down from 12 08/03/17). Labs are otherwise grossly unremarkable for an acute process. Reevaluation #2: 08/18/17 03:30 CT Chest without contrast: No acute process Anemia Small hiatal hernia PERC clinical decision rule was applied, and the patient does not have any of the following: -Age > 50 years -Pulse > 100 -Oxygen Saturation < 94% -History of Hemoptysis -Unilateral leg swelling -History or PE/DVT -Recent surgery or Trauma -Oral contraceptive/Hormone use Patient was updated on all results, patient is PERC negative on examination, and appears stable for discharge with sober ride. Medical Decision Making - Lab Data Result diagrams: 08/18/17 02:34 08/18/17 02:34 Disposition Disposition: Discharge Clinical Impression: Contusion of rib on right side Qualifiers: Encounter type: initial encounter Qualified Code(s): S20.211A - Contusion of right front wall of thorax, initial encounter Alcohol intoxication Qualifiers: Complication of substance-induced condition: uncomplicated Qualified Code(s): F10.920 - Alcohol use, unspecified with intoxication, uncomplicated Disposition: Home, Self-Care Condition: (2) Stable Instructions: Rib Contusion (ED) Additional Instructions: Return to ED if your symptoms worsen or if you have any concerns. Alcohol in moderation. Follow-up with your family doctor in 3-5 days as directed. Forms: Patient Portal Access Time of Disposition: 03:32 Quality - Quality Measures Quality Measures: N/A - Blood Pressure Screening Does Patient Have Any of the Following: No Blood Pressure Classification: Normal BP Reading Systolic Measurement: 114 Diastolic Measurement: 66 Screening for High Blood Pressure: < Normal BP, F/U Not Required > [G8783]
[2017-08-18 02:39] LABS: HEMATOCRIT 32.3 % (35.0-47.0); HEMOGLOBIN 9.8 gm/dl (11.6-16.0); MEAN CORPUSCULAR HGB CONC 30.3 g/dl (32-36); MEAN PLATELET VOLUME 9.9 fl (7.4-10.4); PLATELET COUNT 371 K/uL (130-400); RED BLOOD COUNT 3.89 M/uL (3.80-5.40); RED CELL DISTRIBUTION WIDTH 17.1 % (11.5-14.5); WHITE BLOOD COUNT W/O DIFF 6.5 K/uL (4.2-12.2)
[2017-08-18 02:41] LABS: MEAN CORPUSCULAR HEMOGLOBIN 25.1 pg (27-33)
[2017-08-18 02:52] LABS: BILIRUBIN,TOTAL < 0.20 mg/dL (0.2-1.0); BLOOD UREA NITROGEN 6 mg/dL (6-20); CREATININE 0.6 mg/dL (0.5-0.9); EST GLOMERULAR FILTRATION RATE > 60 mL/min; TOTAL PROTEIN 6.5 g/dL (6.6-8.7)
[2017-08-18 02:53] LABS: ALCOHOL 0.269 g/dL (0-0.010)
[2017-08-18 02:54] LABS: GLUCOSE,RANDOM 99 mg/dL (74-109)
[2017-08-18 02:57] LABS: ALB/GLOB RATIO 1.5 (1.1-1.8); ALBUMIN 3.9 g/dL (4.0-5.0); ALKALINE PHOSPHATASE 60 U/L (35-104); ALT/SGPT 17 U/L (<33); AST/SGOT 22 U/L (10.0-35.0)
--- NOTE | 2017-08-19 11:06 | CT SCAN REPORT ---
EXAM: CT OF THE CHEST HISTORY: RIB PAIN. TECHNIQUE: CT of the chest was performed without IV contrast. This limits evaluation of the mediastinum and hilum. Comparison: None. FINDINGS: No convincing evidence for mediastinal or hilar adenopathy. The heart and pericardium are unremarkable. Limited evaluation of the upper abdomen shows a small hiatal hernia. The osseous structures are grossly intact. No evidence for rib fracture. The visualized airways are patent. The lungs are clear. There is no pneumothorax. IMPRESSION: NEGATIVE FOR AN ACUTE INTRATHORACIC PROCESS. THE LUNGS ARE CLEAR. JOB NUMBER: [id number] [facility]
== END 2017-08-18 04:11 | disposition home or self-care (01) ==
LOC: ER 00:57
DX: S20.211A Contusion of right front wall of thorax, initial encounter (principal); F10.920 Alcohol use, unspecified with intoxication, uncomplicated; Y90.8 Blood alcohol level of 240 mg/100 ml or more; W50.0XXA Accidental hit or strike by another person, initial encounter; Z87.891 Personal history of nicotine dependence
CPT/HCPCS: 99283; 99284; 80053; 85027; 71250; G0480; 80320